=== PATIENT | male | born 1950 | race Caucasian/White ===

== ENCOUNTER 2023-05-23 18:16 | Emergency (ER) | payer MEDICARE, SELFPAY ==
[2023-05-23 18:22] VITALS: BP 171/91
[2023-05-23] MEDS: MOTRIN 400 MG PO (20:05)
--- NOTE | 2023-05-23 20:31 | ED.MUSCINJ ---
HPI-Injury
General
Chief Complaint: Fall
Source: patient
Exam Limitations: none
Time Seen by Provider: 05/23/23 20:30
Travel History
Have you had any contact with someone who has COVID-19?: No
Do you have any symptoms of coronavirus? Fever > 100 degrees, chills, cough, shortness of breath, sore throat, loss of taste or smell, muscle aches, or headache?: No
History of Present Illness-Injury
Is this injury a work related problem?: No
Is pt an associate of [facility]?: No
Initial Injury comments:
This is a 73 year old male that comes in with c/o right foot pain. States that he was walking out of [place] and there was a stone on the sidewalk that he did not see. States that he stepped on the stone and he twisted his ankle and went down.
States that he heard something crack. Denies hitting his head or any LOC. Denies any fever, chills, nausea, vomiting.
Past History
Past History
ED Past Medical History: Asthma and Other (Sleep apnea, Renal calculus, Aortic valve issues that they are watching. ); Negative HTN, IDDM or NIDDM
ED Past Surgical History: Orthopedic (Left knee surgery), Urological and Other (cataracts, )
Social History
Tobacco: Non-smoker
Alcohol: Occasional
Drug: None
Personal:
Living: with family
Employment: Employed
Family History
Family History: Other (Noncontributory)
Review of Systems
Review of Systems
All Other Systems: ROS reviewed and negative except as documented in HPI and ROS
Constitutional: Reports no symptoms; Denies fever or chills
EENT: Reports no symptoms
Respiratory: Reports no symptoms
Cardiac: Reports no symptoms
ABD/GI: Reports no symptoms
: Reports no symptoms
Musculoskeletal: Reports other (Pain right foot)
Skin: Reports no symptoms
Neurological: Reports no symptoms
Psychiatric: Reports no symptoms
Musculoskeletal Injury Exam
Musculoskeletal Injury Exam
Right Lateral Foot:
Pain with Movement?: Mild
Tender to palpation?: Mild
Soft tissue swelling?: Mild
External deformity and angulation?: None
Joint effusion?: None
Contusion?: None
Hematoma-local bleeding into tissue?: None
Strain- Sprain- Tear (Connective tissue injury)?: None
Crepitus with movement?: No
Joint instability?: No
Malalignment/deformity?: No
Range of motion: Full
Distal skin color and temperature: normal-warm & good color
Capillary Refill: normal
Normal distal neurovascular exam?: Yes
Phy Exam
General Physical Exam
General Presentation: well appearing and no apparent distress
General age: appears stated age
General Skin: warm and dry
General Habitus: normal
General Mental: alert
General Hydration: appears well hydrated
Eye Exam
Eye Exam: EOMI
Musculoskeletal Exam
Musculoskeletal Exam: full ROM, no edema and other (Tenderness to palpation right lateral foot. Negative for discomfort with flexion of the knees and slightly discomfort in foot with flexion of the ankle. Negative for any heel tenderness. )
Skin Exam
Skin Exam: normal color, warm/dry, no rash and no petechia
Psychiatric Exam
Psychiatric Exam: normal mood/affect
Injury Course
Orders/Labs/Results
Orders:
Orders
05/23/23 18:24
CR Ankle - Right Min 3 Views * Urgent
Comment:
Reason For Exam: fall
CR Foot - Right Min 3 Views Urgent
Comment:
Reason For Exam: fall
CR Knee - Left 4 Or More View* Urgent
Comment:
Reason For Exam: fall
05/23/23 20:04
Ibuprofen [Motrin] 400 mg .ROUTE .STK-MED ONE
05/23/23 20:05
Ibuprofen [Motrin] 400 mg PO NOW STA
MDM/Problems Addressed
Differential Diagnosis Includes:
Foot fracture,
MDM/Problems Addressed:
This is a 73 year old male that comes in with c/o right foot pain after stepping on a stone.
Will get X-ray.
Expained to patient that he has a metatarsal fracture. Will place patient an an Orthopedic boat and have patient follow up with the geological specialist. Patient can take Ibuprofen 600mg every 6 hours for pain. Return with any concerns.
Chronic conditions affecting care:
NA
Acute Exacerbation and/or Progression of Chronic Illness:
NA
*Radiology
Radiology exam reviewed: radiology read reviewed (Knee/Foot/Ankle-acute avulsion frature at the base of the fifth metatarsal.)
*Pulse Oximetry
Patient hypoxic: no
*EKG
Interpreted by ED Provider?: NA
Rate: EKG- N/A
*Cluster Bore Operator Interpretation
Rate: Cluster Bore Operator- N/A
*Critical Care Note
Total Time (30-74mins, 75-104mins- exclusive of procedures): Not Applicable
ED Attending Note
-
Portions of this chart may have been created with voice recognition software.� Occasional wrong word or��sound alike� substitutions may have occurred due to the inherent limitations of voice recognition software.
Discharge Plan
Departure
Patient Disposition: Home (Routine Discharge)
Date of Disposition: 05/23/23
Time of Disposition: 20:50
Patient with high blood pressure during this ER visit?: Yes
Condition: Good
Covid-19: Not Applicable
Discharge Problem:
Foot fracture, right
Instructions: Foot Fracture (DC), BLOOD PRESSURE, RICE Therapy
Prescriptions:
No Action
hydrocodone-acetaminophen 1 TABLET tablet
1 tab PO Q4HPRN PRN (Reason: pain) Qty: 10 0RF
ibuprofen 600 MG tablet
600 mg PO Q6HPRN PRN (Reason: pain) Qty: 20 0RF
ondansetron 4 MG tablet,disintegrating
4 mg PO TIDPRN PRN (Reason: nausea/vomiting) Qty: 10 0RF
Referrals:
Cristina Zazueta MD [Non-Admitting Privileges] - Follow up in 2-3 days
Maria Del Carmen Davies MD [Family Provider] -
Activity Restrictions/Additional Instructions:
As discussed, you have a fracture of the 5th metatarsal. Please galan the Orthopedic boat when you are up moving around. You may use the crutches until you feel that you can put some weight on the foot. Please call the geological specialist for
further evaluation and treatment. You may use Ibuprofen 600mg every 6 hours with food for pain. Rest, ice and elevate. IF YOU HAVE ANY OTHER CONCERNS PLEASE RETURN TO THE EMERGENCY ROOM.
Interventions
Interventions:
*General Assessment Last Done: 05/23/23 18:22
*ED COVID-19 Vaccine History Last Done: 05/23/23 18:22
ED-Musculoskeletal Assessment Last Done: 05/23/23 19:43
ED- Neurological Assessment Last Done: 05/23/23 19:43
ED-Skin Assessment Last Done: 05/23/23 19:43
== END 2023-05-23 21:42 | disposition home or self-care (01) ==
LOC: EMR 18:16
PROVIDERS: EMERGENCY PHYSICIAN Emergency Medicine; FAMILY PHYSICIAN Internal Medicine
DX: S92.352A Displaced fracture of fifth metatarsal bone, left foot, initial encounter for closed fracture (principal); W18.39XA Other fall on same level, initial encounter; Y93.01 Activity, walking, marching and hiking; Y92.480 Sidewalk as the place of occurrence of the external cause; X50.1XXA Overexertion from prolonged static or awkward postures, initial encounter; R03.0 Elevated blood-pressure reading, without diagnosis of hypertension; J45.909 Unspecified asthma, uncomplicated; G47.30 Sleep apnea, unspecified; Z87.442 Personal history of urinary calculi
CPT/HCPCS: 99283; 29515; 73564; 73610; 73630

== ENCOUNTER → 2025-01-17 12:37 | Outpatient (REF) | payer MEDICARE, SELFPAY | LOC: SDSPAT 12:37 | PROVIDERS: ATTENDING PHYSICIAN Surgery; FAMILY PHYSICIAN Internal Medicine | DX: K40.90 Unilateral inguinal hernia, without obstruction or gangrene, not specified as recurrent (principal); Z01.818 Encounter for other preprocedural examination | CPT/HCPCS: 36415; 93005 ==

== ENCOUNTER 2025-01-31 05:44 | Day surgery (SDC) | payer MEDICARE, SELFPAY ==
[2025-01-17 13:40] VITALS: BMI 25.5
[2025-01-31] VITALS (12 sets, daily range): BP systolic 106–160; BP diastolic 60–93; BMI 25.5
[2025-01-31] MEDS: TYLENOL 1000 MG PO (06:27)
[2025-01-31] MEDS: NORMOSOL-R/PLASMALYTE-A 1000 IV (06:28)
--- NOTE | 2025-01-31 06:45 | HP.FOC2 ---
Focused History & Physical
Chief Complaint
HPI:
Chief Complaint: Right inguinal hernia
HPI / Indication for Planned Procedure: Patient is a 74-year-old male previously seen in surgical evaluation secondary to visible and palpable swelling in the right inguinal area. Physical examination confirmed the presence of a reducible right
inguinal hernia. After discussions regarding treatment options patient wished proceed with operative correction and presents for surgery today.
Relevant Past Medical History: Other (Aortic stenosis, sleep apnea/CPAP, history of kidney stones)
Relevant Social History: Negative
Relevant Family History: Negative
Relevant Past Surgical History: Positive for (Cataracts, kidney stone removal, left knee surgery)
Review of Systems
Review of Pertinent Systems: All Systems Negative
Medication
See Medication form for detailed medications: Yes
Medication List (including Herbals & OTC):
cholecalciferol (vitamin D3) 50 mcg (2,000 unit) capsule (Vitamin D3) 50 mcg PO DAILY 01/17/25
flaxseed oil 1,200 mg PO DAILY 01/17/25
melatonin 5 mg tablet 5 mg PO HS 01/17/25
multivitamin with minerals-folic acid 200 mcg chewable tablet (Multivitamin Gummies) 2 tab PO DAILY 01/17/25
Medications Reviewed: Yes
Allergies and Reactions
Patient has Allergies: Yes
Noted Allergies and Reactions:
Allergy/AdvReac Type Severity Reaction Status Date / Time
jeremias Allergy Anaphylaxis Verified 01/31/25 06:15
Pertinent Physical Exam
All Other Systems: Negative
Head/Neck: Normal
Lungs: Normal
Heart: Normal
Abdomen: Other (Reducible right inguinal hernia)
Extremities: Normal
Neurological: Normal
Diagnosis / Assessment
74-year-old male presenting for scheduled operative correction symptomatic right inguinal hernia
Plan / Procedure
Robotic assisted laparoscopic repair of right inguinal hernia with mesh
Anesthesia/Sedation to be done by Anesthesia Provider: Yes
--- NOTE | 2025-01-31 06:47 | W.SUR.PREOP ---
Pre-Operative Surgical Note
-
I have examined this patient prior to the performance of the scheduled procedure.
The patient's condition is unchanged from the time of the current History and
Physical and the patient is able to undergo the scheduled procedure.
--- NOTE | 2025-01-31 08:30 | W.IMMPOSTOP ---
Addendum entered and electronically signed by Jeremie Turcios MD 01/31/25 08:40:
#[id number]
Original Note:
Surgical Immed Post Op Note
-
Primary Surgeon: Jeremie Turcios MD
Assisting Surgeon: MANDY Ralph
Alka Swain NP
Pre-op Diagnosis: Right inguinal hernia
Post-op Diagnosis: Right inguinal hernia; indirect, small direct tear as well
Procedure Performed: Robotic assisted laparoscopic NIKKO repair right inguinal hernia with mesh; 3D max large mid weight
Anesthesia Type: GETA +0.25% Marcaine
Specimen / Cultures: None
Estimated Blood Loss: 4 mL
Complications: None immediate
Operative Findings: Right indirect inguinal hernia. Small tear in the indirect space identified as well. Small lipoma of cord structures reduced and excised to facilitate mesh placement. 3D max large mid weight mesh repair. Secured to Jose's
ligament with 2-0 Vicryl stitch x 2. Peritoneal flap closed with 2-0 Monocryl STRATAFIX spiral.
No additional incidental findings.
The assistance of Stella Swain NP was required due to the complexity of the procedure. During the procedure Stella Swain NP assisted with trocar placement, robotic instrumentation and suture material exchanges, and closure of the surgical
incision sites. I was present for the entirety of the operative procedure.
== END 2025-01-31 10:46 | disposition home or self-care (01) ==
LOC: SDS 05:44
PROVIDERS: ATTENDING PHYSICIAN Surgery; FAMILY PHYSICIAN Internal Medicine
DX: K40.90 Unilateral inguinal hernia, without obstruction or gangrene, not specified as recurrent (principal)
CPT/HCPCS: 49650; C1781

== ENCOUNTER → 2025-04-06 12:37 | Outpatient (REF) | payer MEDICARE, SELFPAY | LOC: HWRCS 12:37 | PROVIDERS: ATTENDING PHYSICIAN Internal Medicine Cardiovascular Disease; FAMILY PHYSICIAN Internal Medicine | DX: I35.0 Nonrheumatic aortic (valve) stenosis (principal) | CPT/HCPCS: 93306 ==